=== PATIENT | female | born 1995 | race Asian ===

== ENCOUNTER 2019-08-08 19:20 | Emergency (ER) | payer MEDICAID ==
[~2019-08-08] VITALS: Ht 134.6 cm; Wt 61.0 kg
[2019-08-08 19:29] VITALS: BP 130/87
[2019-08-08] MEDS ORDERED: ciprofloxacin 0.3% 2.5ml ophthalmic solution EACHEYE ONE (19:55)
[2019-08-08] MEDS ORDERED: erythromycin ophthalmic ointment 1gm tube EACHEYE ONE (20:00)
[2019-08-08] MEDS ORDERED: ERYT1OIN6 EACHEYE (20:30)
== END 2019-08-08 20:44 | disposition home or self-care (01) ==
LOC: ER 19:20
DX: H10.9 Unspecified conjunctivitis (principal); Z79.2 Long term (current) use of antibiotics
CPT/HCPCS: 99283